=== PATIENT | male | born 1970 | race Caucasian/White ===

== ENCOUNTER 2018-05-22 18:38 | Inpatient (IN) ==
[2018-05-22] MEDS ORDERED: Acetaminophen 325 MG Tablet PO PRN (23:07)
[2018-05-22] MEDS ORDERED: Aluminum/Magnesium/Simethacone Susp 30 ML UDC PO PRN (23:08)
[2018-05-22] MEDS: LORazepam 1 MG Tablet PO PRN (23:28)
[2018-05-23] MEDS: LORazepam 1 MG Tablet PO PRN ×3 (08:33→20:18)
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
[2018-05-23] MEDS ORDERED: OLANZapine 2.5 MG Tablet PO SCH (21:00)
--- NOTE | 2018-05-23 22:36 | ECG ---
Date Performed: 05/23/2018 Time Performed: 15:38:42 PTAGE: 48 years EKG: SINUS BRADYCARDIA POSSIBLE LEFT ATRIAL ENLARGEMENT BORDERLINE ECG NO PREVIOUS TRACING DOCTOR: Ksenia Baltazar Interpretating Date/Time 05/23/2018 22:35:14
[2018-05-24] MEDS: Folic Acid 1 MG Tablet PO SCH (08:24)
--- NOTE | 2018-05-24 13:13 | P.PNPSY ---
Subjective Chief Complaint: Reported command auditory hallucinations. Remarks: Patient seen and examined with nurse. Chart reviewed. Patient required 1 mg of Ativan overnight by WA. Case discussed with nursing staff. On my examination today, the patient says he is feeling "kind of down." He endorses ongoing command auditory hallucinations as before but denies any suicidal or homicidal ideation. He says that he reads to distract himself. He did sleep well overnight with addition of Zyprexa and tolerated this medication well without side effects. No other medication side effects. No physical complaints. Denies withdrawal symptoms besides perhaps some very mild shakes. Vital Signs Temp Pulse Resp BP Pulse Ox 05/24/18 06:02 97.3 F L 56 L 18 126/88 98 05/23/18 18:31 98.3 F 62 16 140/89 99 05/23/18 18:00 65 117/62 Labs reviewed. EKG sinus bradycardia with QTC of 393 ms, not prolonged. Review of Systems All other systems reviewed negative except as stated in HPI Mental Status Examination Appearance: Appropriate Consciousness: Alert Orientation: Person, Place (At least) Motor Activity: Other (No abnormal motor movements noted) Speech: Unremarkable Language: Adequate Fund of Knowledge: Adequate Attention and Concentration: Adequate Memory: Unremarkable (Grossly intact on clinical exam) Mood: Other ("Kind of down") Affect: Blunt Thought Process & Associations: Intact, Logical, Linear Thought Content: Hallucinations Hallucination Type: Auditory, Command Delusion Type: None Suicidal Ideation: No Suicidal Plan: No Suicidal Intention: No Homicidal Ideation: No Homicidal Plan: No Homicidal Intention: No Insight: Fair Judgment: Impulsive Mental Status Exam Remarks: No signs of withdrawal noted. Assessment and Plan - Assessment (1) Unspecified psychosis Code(s): F29 - Unspecified psychosis not due to a substance or known physiological condition Status: Acute (2) Substance use disorder Code(s): F19.90 - Other psychoactive substance use, unspecified, uncomplicated Status: Acute - Plan Plan: Titrate Zyprexa to 5 mg at bedtime to target ongoing reported psychotic symptoms. Continue to monitor on the inpatient unit. Continue other medications and care as ordered. Justification for Continued Inpatient Stay: Medication changes. 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 Risk for decompensation in less restrictive environment. Discharge Planning: Pending psychiatric stabilization. Request Healthcare Surrogate/Guardian Advocate?: No
[2018-05-25] MEDS: Folic Acid 1 MG Tablet PO SCH (09:25)
--- NOTE | 2018-05-25 14:03 | P.PNPSY ---
Subjective Chief Complaint: Reported command auditory hallucinations. Remarks: Patient seen and examined with counselor. Chart reviewed. Case discussed with nursing staff. CIWA score is minimal per nursing. No behavioral issues noted. On my examination today, the patient says that he feels about the same. He does say that he slept better with the Zyprexa. He continues to complain of low mood and auditory hallucinations as before although he says that reading helps. He contracts for safety on the inpatient unit. He does complain of some low energy and lack of motivation. No side effects from medications. Complains of mild headache, no other physical complaints. Vital Signs Temp Pulse Resp BP 05/25/18 06:04 97.7 F 56 L 16 132/88 No new labs Review of Systems All other systems reviewed negative except as stated in HPI Mental Status Examination Appearance: Appropriate Consciousness: Alert Orientation: Person, Place (At least) Motor Activity: Other (No motoric abnormalities noted. No signs of withdrawal noted.) Speech: Unremarkable Language: Adequate Fund of Knowledge: Adequate Attention and Concentration: Adequate Memory: Unremarkable (Grossly intact on clinical exam) Mood: Sad Affect: Blunt Thought Process & Associations: Intact, Logical, Linear Thought Content: Hallucinations Hallucination Type: Auditory, Command, Other (Does not appear particularly internally stimulated) Delusion Type: None Suicidal Ideation: No Suicidal Plan: No Suicidal Intention: No Homicidal Ideation: No Homicidal Plan: No Homicidal Intention: No Insight: Fair Judgment: Impulsive Assessment and Plan - Assessment (1) Unspecified psychosis Code(s): F29 - Unspecified psychosis not due to a substance or known physiological condition Status: Acute (2) Substance use disorder Code(s): F19.90 - Other psychoactive substance use, unspecified, uncomplicated Status: Acute - Plan Plan: Titrate Zyprexa to 7.5 mg at bedtime to target reported ongoing psychotic symptoms. Sitter addition of an antidepressant. Continue to monitor on the inpatient unit, although we will transfer the patient to the lower acuity unit as his behavior seems more appropriate for that unit. Ibuprofen as needed for headache. Continue other medications and care as ordered. Justification for Continued Inpatient Stay: Medication changes. 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 Risk for decompensation in less restrictive environment. Discharge Planning: Pending psychiatric stabilization. Request Healthcare Surrogate/Guardian Advocate?: No
[2018-05-25] MEDS ORDERED: Ibuprofen 600 MG Tablet PO PRN (16:08)
[2018-05-25] MEDS: Melatonin 5 MG Tablet PO PRN (21:52)
[2018-05-26] MEDS: Folic Acid 1 MG Tablet PO SCH (09:00)
--- NOTE | 2018-05-26 13:39 | P.PNPSY ---
Subjective Chief Complaint: Reported command auditory hallucinations. Remarks: Patient seen and examined. Chart reviewed. Case discussed with staff. On my exam, patient says he feels that his thinking is clearer with titration of his Zyprexa. He describes his auditory hallucinations as "minimal." Mood remains depressed, but this, too is improving. No SI or HI. Denies side effects from medications. No physical complaints. Vital Signs Temp Pulse Resp BP Pulse Ox 05/26/18 05:21 97.6 F 50 L 17 107/72 96 Intake and Output 05/26/18 05/26/18 05/26/18 06:59 14:59 22:59 Intake Total 360 / 360 Balance 360 / 360 Intake: Oral 360 / 360 Labs reviewed. No new labs. Review of Systems All other systems reviewed negative except as stated in HPI Mental Status Examination Appearance: Appropriate Consciousness: Alert Orientation: Person, Place (At least) Motor Activity: Other (No abnormal motor movements noted) Speech: Unremarkable Language: Adequate Fund of Knowledge: Adequate Attention and Concentration: Adequate Memory: Unremarkable (Grossly intact on clinical exam) Mood: Sad (Improving) Affect: Blunt (More reactive) Thought Process & Associations: Intact, Logical, Linear Thought Content: Hallucinations Hallucination Type: Auditory ("Minimal") Delusion Type: None Suicidal Ideation: No Suicidal Plan: No Suicidal Intention: No Homicidal Ideation: No Homicidal Plan: No Homicidal Intention: No Insight: Fair Judgment: Impulsive Mental Status Exam Remarks: No signs of withdrawal noted. Assessment and Plan - Assessment (1) Unspecified psychosis Code(s): F29 - Unspecified psychosis not due to a substance or known physiological condition Status: Acute (2) Substance use disorder Code(s): F19.90 - Other psychoactive substance use, unspecified, uncomplicated Status: Acute - Plan Plan: Continue current dose of Zyprexa as ordered for now. Please consider titrating Zyprexa over the weekend to 10 mg if indicated. Continue to monitor on the inpatient unit. Continue other medications and care as ordered. Justification for Continued Inpatient Stay: Risk for decompensation in less restrictive environment Discharge Planning: Pending psychiatric stabilization. Possible discharge after the weekend. Patient interested in sober living. Request Healthcare Surrogate/Guardian Advocate?: No
[2018-05-26] MEDS: LORazepam 1 MG Tablet PO PRN (21:40)
[2018-05-26] MEDS: Melatonin 5 MG Tablet PO PRN (21:40)
[2018-05-27] MEDS: Folic Acid 1 MG Tablet PO SCH (08:25)
--- NOTE | 2018-05-27 19:11 | P.PNPSY ---
Subjective Chief Complaint: Reported command auditory hallucinations. Remarks: Reviewed electronic medical records and discussed case with staff. Follow-up was conducted in the hallway with JOSÉ Riddle present. Patient is hopeful for placement sober living however he reports some anxiety that they have not returned his phone calls. Reports that he sleeping good and his appetite is been good. His mood is good his affect is euthymic. Mental Status Examination Appearance: Appropriate Consciousness: Alert Orientation: Person, Place (At least) Motor Activity: Other (No abnormal motor movements noted) Speech: Unremarkable Language: Adequate Fund of Knowledge: Adequate Attention and Concentration: Adequate Memory: Unremarkable (Grossly intact on clinical exam) Mood: Sad (Improving) Affect: Blunt (More reactive) Thought Process & Associations: Intact, Logical, Linear Thought Content: Hallucinations Hallucination Type: Auditory ("Minimal") Delusion Type: None Suicidal Ideation: No Suicidal Plan: No Suicidal Intention: No Homicidal Ideation: No Homicidal Plan: No Homicidal Intention: No Insight: Fair Judgment: Impulsive Assessment and Plan - Assessment (1) Unspecified psychosis Code(s): F29 - Unspecified psychosis not due to a substance or known physiological condition Status: Acute - Plan Plan: Patient will be reevaluated Tuesday by the attending psychiatrist. Continue with current treatment plan. Justification for Continued Inpatient Stay: Moving this patient to a less restrictive environment would likely result in decompensation. Request Healthcare Surrogate/Guardian Advocate?: No
[2018-05-27] MEDS: Melatonin 5 MG Tablet PO PRN (21:00)
[2018-05-28] MEDS: Folic Acid 1 MG Tablet PO SCH (08:56)
--- NOTE | 2018-05-28 10:21 | P.PNPSY ---
Subjective Chief Complaint: Reported command auditory hallucinations. Remarks: Reviewed electronic medical records and discussed case with staff. Follow-up was conducted in the hallway with RN present. Patient is actively trying to find a Sober Living situation. He states that he is experiencing some anxiety because he is unemployed. He lost his [employer] job approximately three weeks ago. He is cooperative . Denies AVH. Review of Systems All other systems reviewed negative except as stated in HPI Mental Status Examination Appearance: Appropriate Consciousness: Alert Orientation: x4 Motor Activity: Normal gait Speech: Unremarkable Language: Adequate Fund of Knowledge: Adequate Attention and Concentration: Adequate Memory: Unremarkable (Grossly intact on clinical exam) Mood: Appropriate Affect: Appropriate Thought Process & Associations: Intact, Logical Thought Content: Appropriate Hallucination Type: None Delusion Type: None Suicidal Ideation: No Suicidal Plan: No Suicidal Intention: No Homicidal Ideation: No Homicidal Plan: No Homicidal Intention: No Insight: Adequate Judgment: Adequate Assessment and Plan - Assessment (1) Unspecified psychosis Code(s): F29 - Unspecified psychosis not due to a substance or known physiological condition Status: Acute - Plan Plan: Patient will be reevaluated Tuesday by the attending psychiatrist. Continue with current treatment plan. Justification for Continued Inpatient Stay: Moving patient to a less restrictive environment may result in his decompensation. Request Healthcare Surrogate/Guardian Advocate?: No
[2018-05-28] MEDS: Melatonin 5 MG Tablet PO PRN (20:22)
[2018-05-29] MEDS: Folic Acid 1 MG Tablet PO SCH (08:44)
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
[2018-05-29 17:45] VITALS: O2SAT 96
[2018-05-29] MEDS: Melatonin 5 MG Tablet PO PRN (21:09)
[2018-05-30 06:09] VITALS: BP 102/65; PULSE 61; RESP 16; TEMP 96.5
[2018-05-30] MEDS: Folic Acid 1 MG Tablet PO SCH (08:31)
== END 2018-05-30 09:00 | disposition home or self-care (01) ==
LOC: H270 22:30 → H260 05-25 16:23
PROVIDERS: ADMIT Psychiatry & Neurology Psychiatry; ATTEND Psychiatry & Neurology Psychiatry